=== PATIENT | male | born 1970 | race Caucasian/White ===

== ENCOUNTER 2016-06-01 09:18 | Emergency (ER) | payer SELFPAY ==
--- NOTE | 2016-06-01 09:27 | ED Physician Documentation ---
Lower Extremity Problem - HISTORIAN Historian: patient - HPI Chief Complaint: Lower Extremity Problem Location of Injury: L foot Onset: other (1 week ago) Timing: still present Recent Injury: Yes (when walking pt rolls on his foot) Where: home Severity: mild Quality: pain, swelling, tenderness Exacerbated By: walking Relieved By: nothing Associated Symptoms: chest pain - ROS CONST: denies: fever, weakness GI/: none - PAST HX Past History: other (Hypertension, DM type 2) PE Risk Factors: hypertension Other History: diabetes Type 2 Allergies/Adverse Reactions: Allergies Allergy/AdvReac Type Severity Reaction Status Date / Time No Known Allergies Allergy Verified 01/22/15 18:06 Home Medications: Ambulatory Orders Medication Instructions Recorded Lisinopril 20 mg PO D #30 tablet 06/01/16 - SOCIAL HX Smoking History: greater than 1 pack/day (1 2 ppd) Drug Use: none - FAMILY HX Family History: other (DM) - VITAL SIGNS Vital Signs: Vital Signs Temp Pulse Resp BP Pulse Ox 97.6 F 75 20 167/98 97 06/01/16 11:11 06/01/16 11:11 06/01/16 11:11 06/01/16 11:11 06/01/16 11:11 - REVIEWED ASSESSMENTS Nursing Assessment Reviewed: Yes Vitals Reviewed: Yes ED Results Lab/Radiology - Orders Orders: ED Orders Category Date Time Status XRAY FOOT [FOOT 3 VIEWS OR MORE] [RAD] Stat Exams 06/01/16 Taken Lisinopril [Prinivil] Med 06/01/16 09:36 Discontinued 20 mg PO NOW ONE Foot x-ray: No fracture or bony abnl noted. Lower Extremity Problem - EXAM General Appearance: mild distress Ankle: bilateral: non-tender, normal inspection, normal range of motion, no evidence of injury Foot: right foot: non-tender, normal inspection, normal range of motion, no evidence of injury, left foot: pain, soft tissue tenderness (over the 3,4 metarasl), swelling (mild) RESPIRATORY: no resp distress. No: wheezes, rales, rhonchi CVS: reg rate & rhythm, heart sounds normal, equal pulses NEURO/PSYCH: oriented X3, CN's nml as tested, motor nml SKIN: warm/dry Discharge Clincal Impression: Left foot pain, Hypertension, Diabetes type 2, controlled Prescriptions: Lisinopril 20 mg PO D #30 tablet Referrals: Kristie Burden MD [Primary Care Provider] - 2 Days Additional Instructions: Take Ibuprofen 200mg tablets, 3 tablets three times a day with food. Keep foot elevated with some ice. If not better follow-up with your primary care provider. Restart your lisinopril 20mg daily. Home Medications: Ambulatory Orders Lisinopril 20 mg PO D #30 tablet 06/01/16 Condition: Stable Disposition: 01 HOME, SELF-CARE Decision to Admit: NO Date of Decison to Admit: 06/01/16 Decision Time: 10:35
[2016-06-01] MEDS ORDERED: LISINOPRIL 20 MG TABLET PO ONE (09:36)
[2016-06-01 11:13] VITALS: BP 167/98
--- NOTE | 2016-06-01 14:31 | Diagnostic Imaging Report ---
ANAHI BONE [facility] [id number] [address] [facility] [address] [id number] Report Submission Date: Jun 01, 2016 10:40:12 AM CDT Patient Study Name: MALIA DARDEN Date: Jun 01, 2016 9:45:08 AM CDT Modality Type: CR Gender: M Description: LOWER EXTREMITY : 68 Institution: [facility] Physician: ANAHI BONE Left foot - three views Clinical history: Pain. Findings: Examination left foot in plantar, lateral and oblique views demonstrates degenerative changes with calcaneal spurs seen on the lateral view. There is mild narrowing of the first metatarsophalangeal joint. There is no evident fracture and no lytic or blastic lesion. Impression: 1. Mild degenerative changes. 2. No fracture. Electronically signed on Jun 01, 2016 10:40:12 AM CDT by: Dimitry RITTER
== END 2016-06-01 11:13 | disposition home or self-care (01) ==
LOC: ED 09:18
DX: M79.672 Pain in left foot (principal); I10 Essential (primary) hypertension; E11.9 Type 2 diabetes mellitus without complications
CPT/HCPCS: 73630; 99283